=== PATIENT | female | born 2000 | race Hispanic/Latino ===

== ENCOUNTER 2020-09-18 02:22 | Emergency (ER) | payer BC, OTHER ==
[~2020-09-18 02:22] MED LIST: AMIT25 PO; METH5SU.5 PO; SERT100T PO; TOPI100T31 PO
[2020-09-18] MEDS ORDERED: ACETAMINOPHEN-CODEINE 300/30MG TAB ONE (03:08)
== END 2020-09-18 04:09 | disposition home or self-care (01) ==
LOC: EDH 02:22
DX: M23.8X2 Other internal derangements of left knee (principal)
CPT/HCPCS: 29505; 73562

== ENCOUNTER 2023-12-04 09:12 | Emergency (ER) | payer OTHER, MEDICAID ==
[~2023-12-04] VITALS: Ht 165.1 cm; Wt 113.4 kg
[~2023-12-04 09:12] MED LIST changes: -AMIT25 PO; +AMIT25TA10 PO
[2023-12-04] MEDS: ACETAMINOPHEN 500 MG TABLET PO ONE (09:50)
[2023-12-04] MEDS: APAP/CODEINE 120/12MG 5ML PO STA (10:43)
[2023-12-04 10:44] VITALS: BP 132/81; PULSE 98; RESP 18; O2SAT 99
[2023-12-04 10:48] VITALS: TEMP 100
== END 2023-12-04 11:10 | disposition home or self-care (01) ==
LOC: EDH 09:12
DX: J02.0 Streptococcal pharyngitis (principal); Z79.899 Other long term (current) drug therapy
CPT/HCPCS: 87880